=== PATIENT | male | born 1985 | race Caucasian/White ===

== ENCOUNTER 2023-11-03 22:57 | Emergency (ER) | payer SELFPAY ==
[~2023-11-03] VITALS: Ht 167.6 cm; Wt 83.0 kg
[2023-11-03 23:03] VITALS: TEMP 98.8; O2SAT 89
[2023-11-04] MEDS: ONDANSETRON HCL 4MG/2ML INJ IV STA (00:05)
[2023-11-04] MEDS: SODIUM CHLORIDE 0.9% 1,000 ML IV ONE (00:05)
[2023-11-04 00:06] LABS: BASOPHILS % 0.6 % (0.0-2.0); EOSINOPHILS % 1.5 % (0.0-5.0); HEMATOCRIT. 45.9 % (42.0-52.0); HEMOGLOBIN. 15.6 g/dL (14.0-18.0); LYMPHOCYTES % 43.6 % (20.0-50.0); MEAN CORPUSCULAR HGB CONC 34.1 g/dL (31.0-37.0); MEAN CORPUSCULAR VOLUME 88.2 fL (80.0-94.0); MEAN PLATELET VOLUME 8.1 fl (7.4-10.4); NEUTROPHILS % 45.3 % (40.0-76.0); PLATELET 242 x1000/uL (130-400); RED CELL DISTRIBUTION WIDTH 14.3 % (11.6-14.6); WHITE BLOOD COUNT 9.4 x1000/uL (4.5-11.0)
[2023-11-04 00:10] LABS: CHLORIDE 106 mEq/L (98-107); POTASSIUM 3.8 mEq/L (3.5-5.1); SODIUM 138 mEq/L (136-145)
[2023-11-04 00:11] LABS: CALCIUM 8.5 mg/dL (8.7-10.4); CARBON DIOXIDE 24 mEq/L (21-32)
[2023-11-04 00:16] LABS: CREATININE 0.9 mg/dL (0.6-1.3); ETHANOL BLOOD 217 mg/dL (<10); GLUCOSE 131 mg/dL (70-105); UREA NITROGEN BLOOD 8 mg/dL (9-23)
[2023-11-04 02:23] LABS: *AMPHETAMINES SCREEN URINE NEGATIVE (NEGATIVE)
[2023-11-04 02:24] LABS: *BARBITURATES SCREEN URINE NEGATIVE (NEGATIVE); *BENZODIAZEPINES SCREEN URINE NEGATIVE (NEGATIVE); *COCAINE SCREEN URINE PRESUMPTIVE POSITIVE (NEGATIVE); CANNABINOID URINE SCREEN NEGATIVE (NEGATIVE); ECSTASY MDMA SCREEN URINE NEGATIVE (NEGATIVE); METHADONE URINE SCREEN NEGATIVE (NEGATIVE); OPIATES URINE SCREEN NEGATIVE (NEGATIVE); PHENCYCLIDINE URINE SCREEN NEGATIVE (NEGATIVE)
[2023-11-04 03:47] VITALS: BP 116/80; PULSE 100; RESP 19; O2SAT 98
== END 2023-11-04 03:49 | disposition home or self-care (01) ==
LOC: ER 22:57
DX: R41.82 Altered mental status, unspecified (principal); F10.129 Alcohol abuse with intoxication, unspecified; Y90.7 Blood alcohol level of 200-239 mg/100 ml
CPT/HCPCS: 80048; 80320; 85025; 36415; 99285; 80305; 70450; 96361; 96374; J2405; J7030; Z7610 ×2; G0480